=== PATIENT | female | born 1960 | race Caucasian/White ===

== ENCOUNTER 2021-09-08 14:29 | Emergency (ER) | payer OTHER ==
[~2021-09-08] VITALS: Ht 157.5 cm; Wt 66.2 kg
[2021-09-08 14:42] VITALS: BP 137/77
[2021-09-08] MEDS ORDERED: DICYCLOMINE 10 MG CAP PO ONE (15:50)
[2021-09-08] MEDS ORDERED: KETOROLAC 30 MG/ML VIAL IM ONE (15:50)
[2021-09-08] MEDS ORDERED: ALUMINUM HYD/MAG/SIMETHICONE 30 ML UDC PO ONE (15:50)
[2021-09-08 15:59] LABS: BASOPHILS # (AUTO) 0.1 K/uL (0.00-0.22); BASOPHILS % (AUTO) 0.7 % (0.0-2.0); EOSINOPHILS # (AUTO) 0.2 K/uL (0-0.4); EOSINOPHILS % (AUTO) 2.3 % (0.0-4.0); HEMATOCRIT 36.6 % (36-48); HEMOGLOBIN 12.2 g/dL (12.0-16.0); LYMPHOCYTES # (AUTO) 1.8 K/uL (2.5-16.5); LYMPHOCYTES % (AUTO) 21.9 % (20.5-51.1); MEAN CORPUSCULAR HEMOGLOBIN 29 pg (27-31); MEAN CORPUSCULAR HGB CONC 33 g/dL (33-37); MEAN CORPUSCULAR VOLUME 87.9 fL (80-94); MONOCYTES # (AUTO) 0.7 K/uL (0.8-1.0); MONOCYTES % (AUTO) 8.5 % (1.7-9.3); NEUTROPHILS # (AUTO) 5.4 K/uL (1.8-7.7); NEUTROPHILS % (AUTO) 66.6 % (42.2-75.2); PLATELET COUNT (AUTO) 413 K/uL (140-450); RED BLOOD CELL COUNT(AUTO) 4.16 MIL/uL (4.20-5.40); RED CELL DISTRIBUTION WIDTH 13.7 % (11.6-13.7); WHITE BLOOD COUNT (AUTO) 8.1 K/uL (4.8-10.8)
[2021-09-08 16:13] LABS: ALBUMIN 4.6 g/dL (3.4-5.0); ANION GAP 13.3 (8-16); CARBON DIOXIDE 26.6 mmol/L (21-32); CREATININE 0.8 mg/dL (0.6-1.3); POTASSIUM 3.9 mmol/L (3.5-5.1); TOTAL BILIRUBIN 0.8 mg/dL (0.0-1.0)
--- NOTE | 2021-09-08 16:30 | NUR ---
61/F PRESENTS TO ED WITH C/O BACK PAIN SINCE THURSDAY, DENIES RECENT INJURY OR TRAUMA. REPORTS DIARRHEA SINCE YESTERDAY AND BLACK STOOLS, REPORTS TAKING TYLENOL WITH MILD RELIEF.
[2021-09-08 17:52] LABS: APPEARANCE,URINE CLEAR (CLEAR); BILIRUBIN,URINE NEGATIVE (NEGATIVE); BLOOD, URINE NEGATIVE (NEGATIVE); COLOR,URINE YELLOW (YELLOW); LEUKOCYTE ESTERASE ,URINE NEGATIVE (NEGATIVE); NITRITE, URINE NEGATIVE (NEGATIVE); UGLUCOSE NEGATIVE (NEGATIVE)
[2021-09-08] MEDS ORDERED: ALUMINUM HYD/MAG/SIMETHICONE 30 ML UDC ONE (17:59)
[2021-09-08] MEDS ORDERED: DICYCLOMINE 10 MG CAP ONE (17:59)
[2021-09-08] MEDS ORDERED: KETOROLAC 30 MG/ML VIAL ONE (17:59)
[2021-09-08] MEDS ORDERED: IBUP-2213 PO (18:00)
[2021-09-08] MEDS ORDERED: BEN10 PO (18:00)
[2021-09-08 18:07] VITALS: BP 130/76
--- NOTE | 2021-09-08 18:21 | NUR ---
PATIENT REFUSING TO SIGN DC PAPERS . DR MAK SPEAKING WITH DOCTOR IN LOBBY
--- NOTE | 2021-09-08 18:28 | NUR ---
PT D/C BY DR MAK Patient discharged with v/s stable. Written and verbal after care instructions ABOUT ACUTE BACK PAIN AND DIARRHEA given and explained. Patient alert, oriented and verbalized understanding of instructions. Ambulatory with steady gait. All questions addressed prior to discharge. ID band removed. Patient advised to follow up with PMD. Rx of BENTYL AND DIARRHEA given. Patient educated on indication of medication including possible reaction and side effects. Opportunity to ask questions provided and answered.
== END 2021-09-08 18:28 | disposition home or self-care (01) ==
LOC: MED 14:29
DX: R19.7 Diarrhea, unspecified (principal); M54.50 Low back pain, unspecified; R11.0 Nausea; E78.5 Hyperlipidemia, unspecified; Z79.899 Other long term (current) drug therapy; Z79.1 Long term (current) use of non-steroidal anti-inflammatories (NSAID)
CPT/HCPCS: 36415; 80053; 81003; 83690; 84484; 85025; 93005; 96372; 99284; J1885